=== PATIENT | male | born 1945 | race Caucasian/White ===

== ENCOUNTER 2018-08-14 09:45 | Day surgery (SDC) | payer MEDICARE, OTHER ==
[~2018-08-14] VITALS: Ht 165.1 cm; Wt 80.3 kg
[~2018-08-14 09:45] MED LIST: BIO-FLAX1000 MG PO; FINASTERIDE5 MG PO; FLAX OIL PO; LISINOPRIL20 M1 PO; [UNRECOGNIZED DRUG - OTHER] PO; [UNRECOGNIZED DRUG - OTHER] PO
[2018-08-14] MEDS ORDERED: TOBRADEX 2.5 ML OP (10:09)
[2018-08-14] MEDS ORDERED: ALLERGY RE50 MCG/ACT (10:09)
[2018-08-14 12:05] VITALS: BP 187/81
== END 2018-08-14 12:25 | disposition home or self-care (01) ==
LOC: ENDO 09:45
PROVIDERS: ATTEND Surgery
PROC: 0DBL8ZX Excision of Transverse Colon, Via Natural or Artificial Opening Endoscopic, Diagnostic (ICD-10-PCS; principal; 2018-08-14)
DX: Z12.11 Encounter for screening for malignant neoplasm of colon (principal); D12.3 Benign neoplasm of transverse colon; K57.30 Diverticulosis of large intestine without perforation or abscess without bleeding

== ENCOUNTER 2023-11-05 08:03 | Day surgery (SDC) | payer MEDICARE, OTHER ==
[~2023-11-05 08:03] MED LIST changes: +ALLERGY RE50 MCG/ACT; +FLAX SEED1000 MG PO; +MILK THISTLE1000 MG; +NORVASC PO; +OMEPRAZOLE DR40 MG; +TOBRADEX 2.5 ML OP
[2023-11-05 13:59] VITALS: BP 118/82
== END 2023-11-05 11:19 | disposition home or self-care (01) ==
LOC: ENDO 08:03
PROVIDERS: ATTEND Internal Medicine Gastroenterology
PROC: 0DB98ZX Excision of Duodenum, Via Natural or Artificial Opening Endoscopic, Diagnostic (ICD-10-PCS; principal; 2023-11-05)
PROC: 0DB78ZX Excision of Stomach, Pylorus, Via Natural or Artificial Opening Endoscopic, Diagnostic (ICD-10-PCS; 2023-11-05)
PROC: 0DB58ZX Excision of Esophagus, Via Natural or Artificial Opening Endoscopic, Diagnostic (ICD-10-PCS; 2023-11-05)
DX: K21.00 Gastro-esophageal reflux disease with esophagitis, without bleeding (principal); K29.50 Unspecified chronic gastritis without bleeding; K22.70 Barrett's esophagus without dysplasia; K44.9 Diaphragmatic hernia without obstruction or gangrene; I10 Essential (primary) hypertension; E78.5 Hyperlipidemia, unspecified

== ENCOUNTER 2025-01-08 08:42 | Day surgery (SDC) | payer MEDICARE, OTHER ==
[~2025-01-08] VITALS: Ht 165.1 cm; Wt 78.0 kg
[~2025-01-08 08:42] MED LIST changes: +CLINDAMYCIN2 % VA; +CLOBETASOL0.051 EX; +MILK THISTLE250 MG PO; +TOBRADEX OPTH OD; +[UNRECOGNIZED DRUG - OTHER]
[2025-01-08] MEDS ORDERED: SODIUM CHLORIDE 0.9% 1,000 ML IV ONE (08:43)
[2025-01-08] MEDS ORDERED: FAMOTIDINE 10MG/ML 2ML SDV IV ONE (08:43)
[2025-01-08 10:42] VITALS: BP 117/69
[2025-01-08] MEDS ORDERED: GLYCOPYRROLATE 0.2 MG/ML IV ONE (12:10)
[2025-01-08] MEDS ORDERED: PROPOFOL 200 MG/20 ML VIAL IV ONE (12:10)
[2025-01-08] MEDS ORDERED: LIDOCAINE HCL 2% 2ML SDV IV ONE (12:10)
== END 2025-01-08 10:30 | disposition home or self-care (01) ==
LOC: ENDO 08:42
PROVIDERS: ATTEND Surgery
PROC: 0DB48ZX Excision of Esophagogastric Junction, Via Natural or Artificial Opening Endoscopic, Diagnostic (ICD-10-PCS; principal; 2025-01-08)
PROC: 0DB78ZX Excision of Stomach, Pylorus, Via Natural or Artificial Opening Endoscopic, Diagnostic (ICD-10-PCS; 2025-01-08)
DX: K22.70 Barrett's esophagus without dysplasia (principal); K29.50 Unspecified chronic gastritis without bleeding; K31.89 Other diseases of stomach and duodenum; I10 Essential (primary) hypertension; K21.9 Gastro-esophageal reflux disease without esophagitis
CPT/HCPCS: J1596